=== PATIENT | male | born 1980 | race Caucasian/White ===

== ENCOUNTER 2022-03-05 10:42 | Emergency (ER) | payer OTHER ==
[~2022-03-05] VITALS: Ht 188 cm; Wt 108.9 kg
[2022-03-05] MEDS ORDERED: HYDROCODON-ACE1 EA10 PO (13:10)
[2022-03-05] MEDS ORDERED: CEPHALEXIN500 M1 PO (13:10)
== END 2022-03-05 13:31 | disposition home or self-care (01) ==
LOC: ED 10:42
DX: S21.239A Puncture wound without foreign body of unspecified back wall of thorax without penetration into thoracic cavity, initial encounter (principal); W29.8XXA Contact with other powered hand tools and household machinery, initial encounter; I10 Essential (primary) hypertension; Z23 Encounter for immunization
CPT/HCPCS: 36415; 71045; 71250; 72128; 80053; 85025; 90714; 96374; 96375; 99284-25; J0690; J1170; J2405